=== PATIENT | female | born 1960 | race African-American/Black ===

== ENCOUNTER 2019-06-24 12:10 | Emergency (ER) | payer MEDICARE, MEDICAID ==
[2019-06-24] MEDS ORDERED: Ibuprofen 800 MG TAB ONE (14:03)
--- NOTE | 2019-06-24 15:19 | RAD ---
XR Knee Rt 4 View STANDARD HISTORY: Right knee pain and swelling FINDINGS: No fracture or dislocation is identified. Mild degenerative changes are present
== END 2019-06-24 16:19 | disposition home or self-care (01) ==
LOC: ERS 12:10
DX: M25.461 Effusion, right knee (principal); I10 Essential (primary) hypertension; M19.90 Unspecified osteoarthritis, unspecified site; F17.210 Nicotine dependence, cigarettes, uncomplicated; Z79.899 Other long term (current) drug therapy

== ENCOUNTER 2019-09-17 23:25 | Emergency (ER) | payer MEDICARE, MEDICAID ==
[2019-09-18] MEDS ORDERED: Adacel (T-DAP) 0.5 ML SYRINGE ONE (00:14)
--- NOTE | 2019-09-18 07:36 | RAD ---
XR Foot Rt 3 View STANDARD History: Pain. Stepped on unknown object Comparison: None. Findings: No acute fracture or malalignment. Small plantar and dorsal calcaneal spur. Moderate dorsal talar neck spur. No radiopaque foreign object is appreciated. Lisfranc interval is maintained. Impression: Chronic findings. No acute osseous abnormality.
== END 2019-09-18 01:13 | disposition home or self-care (01) ==
LOC: ERS 23:25
DX: S90.851A Superficial foreign body, right foot, initial encounter (principal); I10 Essential (primary) hypertension; M19.90 Unspecified osteoarthritis, unspecified site; Z79.899 Other long term (current) drug therapy; W45.8XXA Other foreign body or object entering through skin, initial encounter
CPT/HCPCS: 28190; 90471; 90715